=== PATIENT | female | born 1930 | race Caucasian/White ===

== ENCOUNTER 2017-12-02 16:50 | Emergency (ER) | payer BC, MEDICARE ==
[~2017-12-02] VITALS: Ht 144.8 cm; Wt 43.1 kg
[~2017-12-02 16:50] MED LIST: AMLO1TAB15 PO; ERGO500040 PO; FOLI1TAB16 PO; LAMO100T2 PO; LAMO25TA5 PO
--- NOTE | 2017-12-02 18:01 | NUR ---
Dr Jaime at the bedside for MSE.
--- NOTE | 2017-12-02 19:17 | NUR ---
REPORT GIVEN TO MARTHA GAYLE.
--- NOTE | 2017-12-02 19:31 | NUR ---
PT QUIETLY RESTING IN BED. PT'S DAUGHTER AT BEDSIDE. PT IS CALM AND COOPERATIVE. MD VAZQUEZ RE-VISITED BEDSIDE AFTER US TO DISCUSS RESULTS--NO DVT FOUND IN SCAN. CURRENTLY WAITING FOR CT RESULTS FOR FURTHER ASSESSMENT.
--- NOTE | 2017-12-02 20:00 | NUR ---
Patient discharged to home in stable conditon. Written and verbal after care instructions given. Patient verbalizes understanding of instructions. Patient reported having no pain prior to discharge. Patient left in wheelchair pushed by daughter. Pt left with all personal belongings.
[2017-12-02 20:14] VITALS: BP 138/68
== END 2017-12-02 20:00 | disposition home or self-care (01) ==
LOC: ER 16:51
DX: M25.562 Pain in left knee (principal); I10 Essential (primary) hypertension; Z88.0 Allergy status to penicillin; Z88.5 Allergy status to narcotic agent; Z88.8 Allergy status to other drugs, medicaments and biological substances; Z79.899 Other long term (current) drug therapy
CPT/HCPCS: 73700; A4663

== ENCOUNTER 2019-04-19 13:25 | Emergency (ER) | payer MEDICARE, BC ==
[~2019-04-19] VITALS: Ht 144.8 cm; Wt 41.3 kg
[2019-04-19 14:18] LABS: BASOPHILS # (AUTO) 0.1 K/uL (0.0-8.0); EOSINOPHILS # (AUTO) 0.3 K/uL (0.0-0.7); HEMATOCRIT 32.4 % (31.2-41.9); HEMOGLOBIN 10.8 g/dL (10.9-14.3); LYMPHOCYTES # (AUTO) 0.8 K/uL (20.0-40.0); LYMPHOCYTES % (AUTO) 15.8 % (20.5-51.5); MEAN CORPUSCULAR HEMOGLOBIN 32.4 uug (24.7-32.8); MEAN CORPUSCULAR HGB CONC 33 g/dL (32.3-35.6); MEAN CORPUSCULAR VOLUME 97.5 fL (75.5-95.3); MONOCYTES # (AUTO) 0.6 K/uL (2.0-10.0); MONOCYTES % (AUTO) 11.6 % (0.0-11.0); NEUTROPHILS # (AUTO) 3.3 K/uL (1.8-8.9); NEUTROPHILS % (AUTO) 65.6 % (38.5-71.5); PLATELET COUNT (AUTO) 228 K/uL (179-408); RED BLOOD CELL COUNT(AUTO) 3.32 MIL/uL (3.63-4.92); WHITE BLOOD COUNT (AUTO) 5.1 K/uL (3.8-11.8)
[2019-04-19 14:29] LABS: CARBON DIOXIDE 26 mmol/L (21-32); CHLORIDE 100 mmol/L (98-107); CREATININE 6.6 mg/dL (0.6-1.3); GLUCOSE 118 mg/dL (74-106); PHOSPHOROUS 4.4 mg/dL (2.5-4.9); POTASSIUM 3.8 mmol/L (3.5-5.1); UREA NITROGEN, BLOOD 56 mg/dL (7-18)
--- NOTE | 2019-04-19 14:52 | NUR ---
Pt here to get labs drawn prior to being dialyzed. Labs drawn. Results and d/c instructions given to caregiver, verbalized understanding.
--- NOTE | 2019-04-19 14:52 | NUR ---
Patient discharged to home in stable conditon. Written and verbal after care instructions given. Patient verbalizes understanding of instructions.
== END 2019-04-19 14:53 | disposition home or self-care (01) ==
LOC: ER 13:25
DX: N18.6 End stage renal disease (principal); Z88.0 Allergy status to penicillin; Z88.5 Allergy status to narcotic agent; Z88.8 Allergy status to other drugs, medicaments and biological substances; Z79.899 Other long term (current) drug therapy; Z99.2 Dependence on renal dialysis
CPT/HCPCS: 36415; 84100; 85025; A4663